=== PATIENT | male | born 1970 | race Caucasian/White ===

== ENCOUNTER 2016-04-07 08:38 | Emergency (ER) | payer MEDICAID ==
[~2016-04-07] VITALS: Ht 182.9 cm; Wt 86.2 kg
[~2016-04-07 08:38] MED LIST: MECL12.5
[2016-04-07 09:17] VITALS: BP 132/83
== END 2016-04-07 10:36 | disposition home or self-care (01) ==
LOC: ER 08:38
DX: H66.92 Otitis media, unspecified, left ear (principal); E78.5 Hyperlipidemia, unspecified

== ENCOUNTER 2016-04-09 11:42 | Emergency (ER) | payer MEDICAID ==
[~2016-04-09] VITALS: Ht 182.9 cm; Wt 86.2 kg
[2016-04-09 12:12] VITALS: BP 123/84
== END 2016-04-09 12:33 | disposition home or self-care (01) ==
LOC: ER 11:46
DX: J02.9 Acute pharyngitis, unspecified (principal); E78.5 Hyperlipidemia, unspecified; Z88.0 Allergy status to penicillin; Z79.899 Other long term (current) drug therapy